=== PATIENT | female | born 1970 ===

== ENCOUNTER 2017-09-18 15:41 | Emergency (ER) | payer OTHER ==
[2017-09-18 15:53] VITALS: BMI 29.9
[2017-09-18 16:06] VITALS: TEMP 98.2; O2SAT 98
--- NOTE | 2017-09-18 16:29 | ED PDOC ---
Arrival/HPI - General Chief Complaint: Chest Pain Time Seen by Provider: 09/18/17 15:53 Historian: Patient - History of Present Illness Narrative History of Present Illness (Text): 09/18/17 16:23 47 yo female, h/o Asthma, , presents to the ED c/o left sided chest pain x 2-3 weeks. States the pain comes and goes. Today the pain started this morning when she woke up. It feels like pressure with nausea. She felt a little short of breathe. The symptoms are improving and she only has mild pain at this time. She felt a little lightheaded today so she came to get checked out in the ED. No recent travel or prolonged immobilization. No leg pain or swelling. PMD: Dr. Jennifer San Past Medical History - Provider Review Nursing Documentation Reviewed: Yes - Cardiac Hx Cardiac Disorders: No - Pulmonary Hx Respiratory Disorders: Yes Hx Asthma: Yes - Psychiatric Hx Substance Use: No - Surgical History Hx Section: Yes - Anesthesia Hx Anesthesia: Yes Hx Anesthesia Reactions: No Hx Malignant Hyperthermia: No Family/Social History - Physician Review Nursing Documentation Reviewed: Yes Family/Social History: Other (father had SD at his 70's) Smoking Status: Never Smoked Hx Alcohol Use: Yes Frequency of alcohol use: Socially Hx Substance Use: No Allergies/Home Meds Allergies/Adverse Reactions: Allergies nuts Allergy (Uncoded 09/18/17 15:54) RASH Home Medications: Home Meds Medication Instructions Recorded Confirmed No Known Home Med 09/18/17 09/18/17 Review of Systems - Physician Review All systems were reviewed & negative as marked: Yes - Review of Systems Constitutional: Normal Eyes: Normal ENT: Normal Respiratory: SOB Cardiovascular: Chest Pain Gastrointestinal: Nausea. absent: Abdominal Pain, Constipation, Diarrhea, Vomiting Genitourinary Female: Normal Musculoskeletal: Normal Skin: Normal Neurological: Normal Endocrine: Normal Hemo/Lymphatic: Normal Psychiatric: Normal Physical Exam Vital Signs Reviewed: Yes Vital Signs Temp Pulse Resp BP Pulse Ox 09/18/17 18:24 86 18 106/58 L 98 09/18/17 15:55 98.2 F 98 H 16 135/80 98 Temperature: Afebrile Blood Pressure: Normal Pulse: Regular Respiratory Rate: Normal Appearance: Positive for: Well-Appearing, Non-Toxic, Comfortable Pain Distress: None Mental Status: Positive for: Alert and Oriented X 3 - Systems Exam Head: Present: Atraumatic, Normocephalic Pupils: Present: PERRL Extroacular Muscles: Present: EOMI Conjunctiva: Present: Normal Mouth: Present: Moist Mucous Membranes Pharnyx: Present: Normal. No: ERYTHEMA, EXUDATE Neck: Present: Normal Range of Motion Respiratory/Chest: Present: Clear to Auscultation, Good Air Exchange. No: Respiratory Distress, Accessory Muscle Use, Tender to Palpation Cardiovascular: Present: Regular Rate and Rhythm, Normal S1, S2. No: Murmurs Abdomen: Present: Normal Bowel Sounds. No: Tenderness, Distention, Peritoneal Signs Back: Present: Normal Inspection Upper Extremity: Present: Normal Inspection. No: Cyanosis, Edema Lower Extremity: Present: Normal Inspection. No: Edema Neurological: Present: GCS=15, CN II-XII Intact, Speech Normal Skin: Present: Warm, Dry, Normal Color. No: Rashes Psychiatric: Present: Alert, Oriented x 3, Normal Insight, Normal Concentration Medical Decision Making ED Course and Treatment: 09/18/17 16:30 47 yo female with left sided chest pain r/o ACS r/o MSK r/o Stress -- Labs -- CXR -- EKG -- Aspirin PO -- Reevaluate and disposition EKG: NSR at 100bpm with no ST elevations, nl intervals 09/18/17 19:24 GODWIN score is zero. CXR negative. D-dimer negative. Troponin negative. Patient is no longer having symptoms. She is feeling much better. She is low risk for ACS or PE so she can follow up as an outpatient. Patient has a primary care doctor that she will follow up with. She was referred to Dr. Velarde for Cardiology. She was advised to return to the ED with any concerning symptoms. - Lab Interpretations Lab Results: 09/18/17 17:10 09/18/17 17:10 Lab Results 09/18/17 17:10: PT 12.9 H, INR 1.18 H, APTT 34.2, D-Dimer, Quantitative < 200 09/18/17 17:10: Sodium 138, Potassium 4.1, Chloride 102, Carbon Dioxide 27, Anion Gap 13, BUN 17, Creatinine 1.1, Est GFR ( Amer) > 60, Est GFR (Non- Af Amer) 53, Random Glucose 96, Calcium 9.5, Magnesium 1.8, Total Bilirubin 0.6 , AST 27, ALT 36, Alkaline Phosphatase 61, Lactate Dehydrogenase 445, Total Creatine Kinase 118, Troponin I < 0.01, Total Protein 7.7, Albumin 4.3, Globulin 3.4, Albumin/Globulin Ratio 1.3 09/18/17 17:10: WBC 9.7, RBC 4.17, Hgb 12.6, Hct 38.3, MCV 91.8, MCH 30.2, MCHC 32.9, RDW 13.9, Plt Count 322, MPV 10.3, Gran % 71.5 H, Lymph % (Auto) 23.0, [place] % (Auto) 4.7, Eos % (Auto) 0.6 L, Baso % (Auto) 0.2, Gran # 6.92 H, Lymph # 2.2, [place] # 0.5, Eos # 0.1, Baso # 0.02 I have reviewed the lab results: Yes - RAD Interpretation Radiology Orders: 09/18/17 16:07 CHEST PORTABLE [RAD] Stat - Medication Orders Current Medication Orders: Discontinued Medications Aspirin (Aspirin) 325 mg PO STAT STA Stop: 09/18/17 16:08 Last Admin: 09/18/17 17:09 Dose: 325 mg GODWIN Risk Score for UA/NSTEMI - GODWIN Risk Score Age > 64: NO 3 or more CAD Risk Factors: NO Known CAD (Stenosis greater than 50%): NO Aspirin use in past 7 days: NO Severe Angina: NO EKG ST changes greater than 0.5mm: NO Positive Cardiac Marker: NO GODWIN Score: 0 % risk at 14 days of: all cause mortality, new or recurrent SD, or severe recurrent ischemia requiring urgen revascularization: 5% Wells Criteria for PE - Wells Criteria for Pulmonary Embolism Clinical Signs and Symptoms of DVT: No P.E is #1 Diagnosis, or Equally Likely: No Heart Rate >100: No Immobilization at least 3 days;Surgery previous 4 weeks: No Previous, objectively diagnosed PE or DVT: No Hemoptysis: No Malignancy w/treatment within 6 months, or palliative: No Total Score: 0 Disposition/Present on Arrival - Present on Arrival Any Indicators Present on Arrival: No History of DVT/PE: No History of Uncontrolled Diabetes: No Urinary Catheter: No History of Decub. Ulcer: No History Surgical Site Infection Following: None - Disposition Have Diagnosis and Disposition been Completed?: Yes Diagnosis: Chest pain Disposition: HOME/ ROUTINE Disposition Time: 19:24 Patient Plan: Discharge Condition: IMPROVED Discharge Instructions (ExitCare): Chest Pain (ED) Additional Instructions: Ms Davis Durham, thank you for letting us take care of you today. Your provider was Dr. Rodriguez. You were treated for Chest pain. The emergency medical care you received today was directed at your acute symptoms. If you were prescribed any medication, please fill it and take as directed. It may take several days for your symptoms to resolve. Return to the Emergency Department if your symptoms worsen, do not improve, or if you have any other problems. Please contact your doctor or call one of the physicians/clinics you have been referred to that are listed on the Patient Visit Information form that is included in your discharge packet. Bring any paperwork you were given at discharge with you along with any medications you are taking to your follow up visit. Our treatment cannot replace ongoing medical care by a primary care provider (PCP) outside of the emergency department. Thank you for allowing the [facility] team to be part of your care today. If you had an X-Ray or CT scan: A Radiologist will review the ED reading if any change in treatment is needed we will contact you. If you had a blood, urine, or wound culture: It will take several days for the results, if any change in treatment is needed we will contact you. If you had an STI test: It will take 48 hours for the results. Please call after 1 week if you have not heard back. Referrals: Shavonne San MD [Primary Care Provider] - Follow up with primary Yonis Velarde MD [Staff Provider] - Follow up with primary Forms: [employer] (Czech), WORK NOTE
[2017-09-18 17:30] LABS: BASO # 0.02 K/mm3 (0.0-2.0); BASO % 0.2 % (0.0-3.0); EOS # 0.1 (0.0-0.7); EOS % 0.6 % (1.5-5.0); GRAN # 6.92 (1.4-6.5); GRAN % 71.5 % (50.0-68.0); HEMATOCRIT 38.3 % (36.0-48.0); LYMPH # 2.2 (1.2-3.4); MEAN CELL VOLUME 91.8 fl (80.0-105.0); MEAN CORPUSCULAR HEMOGLOBIN 30.2 pg (25.0-35.0); MEAN CORPUSCULAR HGB CONC 32.9 g/dl (31.0-37.0); MEAN PLATELET VOLUME 10.3 fl (7.0-11.0); MONO # 0.5 (0.1-0.6); MONO % 4.7 % (1.0-6.0); RED CELL DISTRIBUTION WIDTH 13.9 % (11.5-14.5); WHITE BLOOD COUNT 9.7 10^3/ul (4.5-11.0)
[2017-09-18 17:37] LABS: ALB/GLOB RATIO 1.3 (1.1-1.8); ALKALINE PHOSPHATASE 61 U/L (38-126); ALT/SGPT 36 U/L (7-56); AST/SGOT 27 U/L (14-36); BILIRUBIN,TOTAL 0.6 mg/dL (0.2-1.3); BLOOD UREA NITROGEN 17 mg/dL (7-21); CALCIUM 9.5 mg/dL (8.4-10.5); CARBON DIOXIDE 27 mmol/L (21-33); CHLORIDE 102 mmol/L (98-107); GFR AFRICAN-AMERICAN > 60; GLUCOSE,RANDOM 96 mg/dL (70-110); MAGNESIUM 1.8 mg/dL (1.7-2.2); POTASSIUM 4.1 mmol/L (3.6-5.0); SODIUM 138 mmol/L (132-148); TOTAL PROTEIN 7.7 g/dL (5.8-8.3)
[2017-09-18 17:40] LABS: INR 1.18 (0.93-1.08); PARTIAL THROMBOPLASTIN TIME 34.2 Seconds (25.1-36.5)
[2017-09-18 17:48] LABS: TROPONIN I < 0.01 ng/mL
[2017-09-18 18:25] VITALS: BP 106/58; PULSE 86; RESP 18
[2017-09-18 22:38] LABS: D DIMER < 200 ng/mL (0-243)
--- NOTE | 2017-09-19 09:00 | RAD ---
HISTORY: chest pain r/o pna COMPARISON: No prior. FINDINGS: LUNGS: No active pulmonary disease. PLEURA: No significant pleural effusion identified, no pneumothorax apparent. CARDIOVASCULAR: Normal. OSSEOUS STRUCTURES: No significant abnormalities. VISUALIZED UPPER ABDOMEN: Normal. OTHER FINDINGS: None. IMPRESSION: No active disease.
--- NOTE | 2017-09-19 20:09 | CARD ---
APPROVED REPORT EKG Measurement Heart [id number] <Conclusion> Sinus rhythm with short PA Otherwise normal ECG
== END 2017-09-18 19:25 | disposition home or self-care (01) ==
LOC: ED 15:41
DX: R07.9 Chest pain, unspecified (principal)

== ENCOUNTER 2017-11-02 16:45 | Emergency (ER) | payer OTHER ==
[2017-11-02 16:45] VITALS: BMI 29.9
[2017-11-02 17:07] VITALS: TEMP 98.3; O2SAT 97
[2017-11-02] MEDS ORDERED: Tmp-Smz 800 mg-160 mg DS Tab PO STA (18:17)
--- NOTE | 2017-11-02 18:21 | ED PDOC ---
Arrival/HPI - General Chief Complaint: Abnormal Skin Integrity Time Seen by Provider: 11/02/17 18:17 Historian: Patient - History of Present Illness Narrative History of Present Illness (Text): 11/02/17 18:18 This 47 yo female who denies pmh, presents to this ED c/o nose redness and pain x 2 days. Patient stated she had been exposed to chemical odor, which caused her to developed her nose problems 2 days ago. She stated chemical exposure occurred at work. She denies fever, or other complains. Time/Duration: Other (see hpi) Quality: Aching Context: Home Past Medical History - Provider Review Nursing Documentation Reviewed: Yes - Cardiac Hx Cardiac Disorders: No - Pulmonary Hx Respiratory Disorders: Yes Hx Asthma: Yes - Psychiatric Hx Substance Use: No - Surgical History Hx Section: Yes - Anesthesia Hx Anesthesia: Yes Hx Anesthesia Reactions: No Hx Malignant Hyperthermia: No Family/Social History - Physician Review Nursing Documentation Reviewed: Yes Family/Social History: Other (noncontributory) Smoking Status: Never Smoked Hx Alcohol Use: Yes Hx Substance Use: No Allergies/Home Meds Allergies/Adverse Reactions: Allergies nuts Allergy (Uncoded 11/02/17 17:07) RASH Review of Systems - Review of Systems Constitutional: Normal. absent: Fatigue, Weight Change, Fevers Eyes: Normal ENT: Normal Respiratory: Normal Cardiovascular: Normal Gastrointestinal: Normal Genitourinary Female: Normal Musculoskeletal: Normal Skin: Rash, Cellulitis, Other (see hpi) Neurological: Normal Endocrine: Normal Hemo/Lymphatic: Normal Psychiatric: Normal Physical Exam Vital Signs Temp Pulse Resp BP Pulse Ox 11/02/17 16:58 98.3 F 95 H 18 137/88 97 Temperature: Afebrile Blood Pressure: Normal Pulse: Regular Respiratory Rate: Normal Appearance: Positive for: Well-Appearing, Non-Toxic, Comfortable Pain Distress: None Mental Status: Positive for: Alert and Oriented X 3 - Systems Exam Head: Present: Atraumatic, Normocephalic Pupils: Present: PERRL Extroacular Muscles: Present: EOMI Conjunctiva: Present: Normal Mouth: Present: Moist Mucous Membranes Nose (External): Present: Atraumatic, Other (mild erythema at nose tip, no external abscess noted) Nose (Internal): Present: No Active Bleeding, Other (Mild swelling on left nare , medially. No drainage). No: Septal Hematoma Neck: Present: Normal Range of Motion. No: Meningeal Signs Upper Extremity: Present: Normal Inspection, Normal ROM Lower Extremity: Present: Normal Inspection, Normal ROM Neurological: Present: GCS=15, CN II-XII Intact, Speech Normal Skin: Present: Warm, Dry, Normal Color. No: Rashes Psychiatric: Present: Alert, Oriented x 3, Normal Insight, Normal Concentration Medical Decision Making ED Course and Treatment: 11/02/17 18:23 Dr. Oneill ED attending came to examined patient. She agreed with plan for ABX and warmth compress, and to f/u Employee health. To return to ED if symptoms worsen. 11/02/17 18:24 Re-evaluation. Discussed results and plan with patient who expresses understanding. All questions answered and there is agreement with the plan to discharge home with instructions. Patient stable for discharge. Return if symptoms persist or worsen. Re-evaluation Time: 18:24 Reassessment Condition: Re-examined, Improved - Medication Orders Current Medication Orders: Cephalexin Monohydrate (Keflex) 500 mg PO STAT STA PRN Reason: Protocol Stop: 11/02/17 18:18 Trimethoprim/Sulfamethoxazole (Bactrim Ds Tab) 1 tab PO STAT STA PRN Reason: Protocol Stop: 11/02/17 18:18 Disposition/Present on Arrival - Present on Arrival Any Indicators Present on Arrival: No History of DVT/PE: No History of Uncontrolled Diabetes: No Urinary Catheter: No History of Decub. Ulcer: No History Surgical Site Infection Following: None - Disposition Have Diagnosis and Disposition been Completed?: Yes Diagnosis: Cellulitis Disposition: HOME/ ROUTINE Disposition Time: 18:25 Patient Problems: Current Active Problems Problem Status Onset Cellulitis Acute Condition: GOOD Discharge Instructions (ExitCare): Cellulitis (ED) Additional Instructions: [facility] Employee Regarding your Work Related Injury, you are instructed to do all of the following by next day: 1. Notify [facility] Employee Health Department of the sustained injury and arrange for any follow-up appointments if needed during the next business day. If the office is closed or no answer is received, please leave a detailed voice message. Message should include your full name, department and ed case manager, date of injury, date of ED visit if applicable. Employee Health can be reached at [phone]. 2. If there is time lost, notify [facility] Human Resources Department of the work related injury the next business day at [phone]. Take medication as instructed with food. Apply warmth compress. Return to Emergency department if symptoms worsen. Prescriptions: Cephalexin [cephalexin] 500 mg PO QID #28 cap Sulfamethoxazole/Trimethoprim [Bactrim DS 800 mg-160 mg] 1 tab PO BID #14 tab Forms: [employer] (Angolan)
[2017-11-02 19:03] VITALS: BP 144/96; PULSE 88; RESP 16
== END 2017-11-02 19:17 | disposition home or self-care (01) ==
LOC: ED 16:45
DX: J34.0 Abscess, furuncle and carbuncle of nose (principal)

== ENCOUNTER 2019-03-19 13:18 | Emergency (ER) | payer OTHER ==
[2019-03-19 13:19] VITALS: BMI 29.9
[2019-03-19] MEDS ORDERED: TDAP Vaccine 0.5 mL Syr IM ONE (14:14)
--- NOTE | 2019-03-19 14:17 | ED PDOC ---
Arrival/HPI - General Chief Complaint: Needle Stick Time Seen by Provider: 03/19/19 14:05 Historian: Patient - History of Present Illness Time/Duration: Prior to Arrival Symptom Onset: Sudden Associated Symptoms (Text): 03/19/19 14:15 At work just prior to arrival and needlestick with an insulin needle in her right dominant thumb. The source patient is known and will have a rapid HIV testing.. Patient needs tetanus immunization. Past Medical History - Cardiac Hx Cardiac Disorders: No - Pulmonary Hx Respiratory Disorders: Yes Hx Asthma: Yes - Psychiatric Hx Substance Use: No - Surgical History Hx Section: Yes - Anesthesia Hx Anesthesia: Yes Hx Anesthesia Reactions: No Hx Malignant Hyperthermia: No Family/Social History - Physician Review Nursing Documentation Reviewed: Yes Family/Social History: Unknown Family HX Smoking Status: Never Smoked Hx Alcohol Use: Yes Hx Substance Use: No Allergies/Home Meds Allergies/Adverse Reactions: Allergies nuts Allergy (Uncoded 11/02/17 17:07) RASH Physical Exam Temperature: Afebrile Blood Pressure: Hypertensive Pulse: Regular Respiratory Rate: Normal Appearance: Positive for: Well-Appearing, Non-Toxic, Comfortable Pain Distress: None Mental Status: Positive for: Alert and Oriented X 3 - Systems Exam Upper Extremity: Present: Normal Inspection, Normal ROM, Neurovascularly Intact. No: Cyanosis, Edema, Tenderness, Swelling, Erythema, Deformity Skin: Present: Warm, Dry, Normal Color, Other (No wound appreciated. Nontender.). No: Rashes Medical Decision Making ED Course and Treatment: 03/19/19 14:16 Source patient will have rapid HIV testing done. Patient does not want HIV prophylaxis at this time. Disposition/Present on Arrival - Present on Arrival Any Indicators Present on Arrival: No History of DVT/PE: No History of Uncontrolled Diabetes: No Urinary Catheter: No History of Decub. Ulcer: No History Surgical Site Infection Following: None - Disposition Have Diagnosis and Disposition been Completed?: Yes Diagnosis: Needlestick injury due to hypodermic needle Disposition: HOME/ ROUTINE Disposition Time: 14:17 Patient Plan: Discharge Condition: GOOD Discharge Instructions (ExitCare): Proper Disposal of [place], Wound Care (DC) Forms: [employer] (Kiswahili)
[2019-03-19 14:21] VITALS: BP 150/89; PULSE 84; RESP 18; TEMP 98.6; O2SAT 98
== END 2019-03-19 14:55 | disposition home or self-care (01) ==
LOC: ED 13:18
DX: S61.031A Puncture wound without foreign body of right thumb without damage to nail, initial encounter (principal); W46.0XXA Contact with hypodermic needle, initial encounter; Y92.238 Other place in hospital as the place of occurrence of the external cause; Y99.0 Civilian activity done for income or pay; Z23 Encounter for immunization